=== PATIENT | male | born 1990 | race Caucasian/White ===

== ENCOUNTER 2021-02-12 17:17 | Emergency (ER) | payer OTHER, SELFPAY ==
[2021-02-12 17:23] VITALS: BP 143/84; PULSE 83; RESP 16; TEMP 37.1; O2SAT 97
--- NOTE | 2021-02-12 17:30 | DI.RAD_ITS ---
Exam(s) XR ANKLE RT COMPLETE EXAM: XR ANKLE RT COMPLETE CLINICAL HISTORY: twist injury. TECHNIQUE: 2D digital imaging was performed. COMPARISON: No exams were available for comparison FINDINGS: Soft tissue swelling is noted laterally. However, there is no evidence of fracture or widening of th e mortise. Talar dome appears unremarkable. No osseous lesions. IMPRESSION: Soft tissue swelling but no fracture evident. DATA REPOSITORY: RADIATION DOSE DELIVERED:
[2021-02-12] MEDS: Ibuprofen 600 MG TAB PO (18:23)
--- NOTE | 2021-02-12 18:32 | DI.VRAD_ITS ---
PROCEDURE INFORMATION: Exam: XR Right Ankle Exam date and time: 02/12/2021 5:45 PM Age: 30 years old Clinical indication: Other: Twist injury TECHNIQUE: Imaging protocol: XR Right ankle. Views: 3 or more views. COMPARISON: No relevant prior studies available. FINDINGS: Bones/joints: No evidence for a fracture. Alignment is anatomic. The joint spaces are preserved. The ankle mortise is congruent. Soft tissues: There is soft tissue swelling over the lateral malleolus. IMPRESSION: Soft tissue swelling. No fracture identified. Dictated and Authenticated by: Roger Dixon MD. Ordering:ERIC Krishnan MD
--- NOTE | 2021-02-12 18:46 | W.ED.GENAD ---
Discharge Plan Disposition Patient Disposition: HOME Condition: Stable Discharge Details Chief Complaint: Orthopedic Clinical Impression: Right ankle sprain, Puncture wound of foot, right Primary Care Provider: None,None ED Provider: Ariella Adames Home Meds and New Rx's Prescriptions: No Action No Known Home Meds RF: 0 Discharge Instructions Instructions: Ankle Sprain (ED), Puncture Wound (ED) Additional Instructions: wear ankle stabilizer for comfort and support Ice to affected area 4 times daily elevate above level of your heart to reduce swelling ibuprofen 600 mg 4 times daily for 5 days, take with food. after 2 days can use heat or ice. warm soaks to right foot 2 times daily. monitor for signs of infection and report immediately. if you have increasing pain and can not ambulate tomorrow, please call occupational medicine for follow up appointment. Stand Alone Forms: Work Release Referrals: Occupational Medicine [Outside] (if symptoms worsening) Medical Decision Making patient presents with work related injury. puncture wound to foot from stepping on a nail and ankle twist of same foot. xray shows soft tissue swelling, no acute fracture tetanus shot given, wound care instructions. no antibiotics indicated at this time, advised to monitor for infection will recommend RICE and nsaids for ankle sprain. f/u with occupational medicine tomorrow if unable to ambulate safely for work. HPI General Date/Time Provider Initiated Documentation: 02/12/21 17:41. Limitations to Documentation: no limitations. Information obtained by: patient. HPI Narrative: patient reports today at approx 3:30 while at work, stepped on a board outside that had a nail sticking out that he didn't see. nail went through his shoe and punctured his midfoot. unknown last tetanus. he then noted that he likely rolled his ankle as he had pain with swelling and some bruising. he was able to ambulate. he has worsening pain and swelling. no bleeding from puncture wound. no other c/o Related Data Home Medications Medication Instructions Recorded Confirmed Unknown [No Known Home Meds] 02/12/21 02/12/21 Allergies Allergy/AdvReac Type Severity Reaction Status Date / Time No Known Allergies Allergy Unverified 02/12/21 17:22 General Stated Complaint: Orthopedic HEAVEN: 4 Review of Systems Musculoskeletal Musculoskeletal: Denies abnormal gait, Denies deformity, Reports arthralgias, Reports joint swelling, Denies numbness and Denies tingling Integumentary/Breasts Skin/Breast: Reports wounds (puncture wound to plantar mid foot, no bleeding) Neurologic Neurologic: Denies abnormal gait, Denies numbness and Denies tingling [facility] Social History Smoking/Tobacco Use Status: Current every day Tobacco Type: smokeless tobacco Tobacco: How many years used: 15 Smoking risk assessment performed?: Yes Drug use: Never Substance use type: does not use Do you feel safe at home: Yes Do you feel safe in your relationship?: Yes Exam Const General: cooperative, healthy appearing, comfortable and no acute distress Nutritional Appearance: average body habitus Orientation: alert, awake and oriented x3 Cardio Rate: regular rate Rhythm: regular rhythm Skin Lesions: lesion noted (right foot plantar, mid foot, puncture wound) Rashes: no rashes Extrem Right lower extremity: full ROM, normal capillary refill and ankle Details: tenderness Location: of the lateral malleolus, swelling and ecchymosis Course Vital Signs Vital signs: Vital Signs Temperature 37.1 C 02/12/21 17:23 Pulse 83 02/12/21 17:23 Respiratory Rate 16 02/12/21 17:23 Blood Pressure 143/84 H 02/12/21 17:23 Pulse Oximetry 97 02/12/21 17:23 Temperature 37.1 C 02/12/21 17:23 Temperature Source Temporal Artery Scan 02/12/21 17:23 Pulse 83 02/12/21 17:23 Respiratory Rate 16 02/12/21 17:23 Respiratory Effort Non-Labored 02/12/21 17:25 Blood Pressure 143/84 H 02/12/21 17:23 Blood Pressure Position Sitting 02/12/21 17:23 Pulse Oximetry 97 02/12/21 17:23 Oxygen Delivery Method Room Air 02/12/21 17:23 Oxygen Flow Rate 0 02/12/21 17:23 Pain Level 8 02/12/21 17:23 PAWSS Have you Been Recently Intoxicated or Drunk Within the Last 30 days?: Yes Have you Ever Experienced Previous Episodes of Alcohol Withdrawal?: No Have you ever Experienced Withdrawal Seizures?: No Have you ever Experienced Delirium Tremens(DT)s?: No Have you ever undergone Alcohol Rehabilitation Treatment (i.e, inpt ot outpatient treatment programs)?: No Have you ever Experienced Blackouts?: No Have you ever Combined Alcohol with other Downers within the last 90 days?: No Have you ever Combined Alcohol with any other Substance of Abuse during the last 90 days?: No Positive Blood Alcohol level on Presentation? [PCS.BAL]: No Evidence of Increased Autonomic Activity (i.e. HR>120, tremor, sweating, agitation, nausea)?: No Result: 1
== END 2021-02-12 19:12 | disposition home or self-care (01) ==
PROVIDERS: Emergency Provider Nurse Practitioner Acute Care
DX: S93.491A Sprain of other ligament of right ankle, initial encounter (principal); X50.1XXA Overexertion from prolonged static or awkward postures, initial encounter; S91.331A Puncture wound without foreign body, right foot, initial encounter; W45.0XXA Nail entering through skin, initial encounter; Y99.0 Civilian activity done for income or pay
CPT/HCPCS: 90471; 99284; 73610; 99283